=== PATIENT | female | born 1970 | race African-American/Black ===

== ENCOUNTER 2016-07-08 21:13 | Emergency (ER) | payer OTHER ==
[~2016-07-08] VITALS: Ht 162.6 cm; Wt 117.8 kg
[~2016-07-08 21:13] MED LIST: EXCEDRIN MIGRAI1 TAB PO; Flexeril PO; Motrin PO; PRILOSEC; Tylenol Regular Stre PO
[2016-07-08] MEDS ORDERED: FLEXERIL10 MG PO (22:16)
[2016-07-08 22:52] VITALS: BP 144/99
== END 2016-07-08 22:52 | disposition home or self-care (01) ==
LOC: EME 21:13
DX: S16.1XXA Strain of muscle, fascia and tendon at neck level, initial encounter (principal); V89.2XXA Person injured in unspecified motor-vehicle accident, traffic, initial encounter; Z88.2 Allergy status to sulfonamides
CPT/HCPCS: 99281; 99284